=== PATIENT | male | born 1990 | race Caucasian/White ===

== ENCOUNTER → 2016-07-15 | Outpatient (CLI) | payer BC ==
[2016-07-15 09:31] LABS: ABSOLUTE NEUTROPHILS 3.8 thou/uL (1.4-8.2); BASOPHILS 0.6 % (0.0-2.0); EOSINOPHILS 6.6 % (0.0-3.0); HEMATOCRIT 46.1 % (42.0-52.0); HEMOGLOBIN 16.1 gm/dL (14.0-18.0); LYMPHOCYTES 25.3 % (24.0-44.0); MCH 31.5 pg (26.0-34.0); MCHC 34.8 g/dL (28.0-37.0); MCV 90.5 fL (80.0-100.0); MONOCYTES 7.7 % (1.0-8.0); PLATELET COUNT 310 thou/uL (150-400); POLYS 59.8 % (36.0-66.0); WBC 6.4 thou/uL (4.0-11.0)
[2016-07-15 09:35] LABS: MANUAL DIFF NO
[2016-07-15 09:48] LABS: ALBUMIN 3.8 g/dL (3.4-5.0); CALCIUM 8.7 mg/dL (8.5-10.1); POTASSIUM 4.2 mmol/L (3.5-5.1); TOTAL BILIRUBIN 1.3 mg/dL (<0.1-1.0); TOTAL PROTEIN 7.4 g/dL (6.4-8.2)
[2016-07-15 15:07] LABS: IgA 136 mg/dL (90-386); IgG 964 mg/dL (700-1600); IgM 54 mg/dL (20-172)
[2016-07-16 16:09] LABS: ANTI-DNA SCREEN <1 IU/mL (0-9); ANTI-RNP <0.2 AI (0.0-0.9)
== END ==
LOC: MRI 08:47
PROVIDERS: Psychiatry & Neurology Neuromuscular Medicine
DX: M48.02 Spinal stenosis, cervical region (principal)

== ENCOUNTER → 2016-09-16 | Outpatient (CLI) | payer BC | LOC: RAD 14:39 | DX: M25.512 Pain in left shoulder (principal); M25.562 Pain in left knee; M25.561 Pain in right knee; M25.551 Pain in right hip ==